=== PATIENT | female | born 1970 | race Caucasian/White ===

== ENCOUNTER 2017-01-13 15:25 | Emergency (ER) | payer SELFPAY ==
[2017-01-13 15:29] VITALS: BP 142/86; PULSE 100; TEMP 97.7; BMI 26.6
--- NOTE | 2017-01-13 15:30 | PDOC ---
Rapid Medical Evaluation Time Seen by Provider: 01/13/17 15:28 Medical Evaluation: Allergies Allergy/AdvReac Type Severity Reaction Status Date / Time No Known Allergies Allergy Verified 10/07/15 16:26 01/13/17 15:28 I have performed a brief in-person evaluation of this patient. The patient presents with a chief complaint of: sore throat and cough x 1 week Pertinent physical exam findings:Exam unremarkable I have ordered the following:nothing The patient will proceed to the ED for further evaluation.
--- NOTE | 2017-01-13 15:59 | PDOC ---
History of Present Illness - General Chief Complaint: Sore Throat Stated Complaint: COUGH, THROAT PAIN Time Seen by Provider: 01/13/17 15:28 History Source: Patient Exam Limitations: No Limitations - History of Present Illness Initial Comments: 01/13/17 16:19 Patient is a 46-year-old female with no past medical history who presents emergency department with 1 week of ear pain, cough and sore throat. She is not taking any medication to help with her pain, or cough. She states that her ear pain makes her throat hurt more. Denies fevers, chills, malaise, hearing changes , tinnitus, shortness of breath, chest pain, nausea, vomiting and diarrhea. Past History - Travel Traveled outside of the country in the last 30 days: No Close contact w/someone who was outside of country & ill: No - Past Medical History Allergies/Adverse Reactions: Allergies Allergy/AdvReac Type Severity Reaction Status Date / Time No Known Allergies Allergy Verified 01/13/17 15:29 Home Medications: Ambulatory Orders Albuterol Sulfate Inhaler - [Ventolin HFA Inhaler -] 1 - 2 inh PO Q4H #1 inhaler 01/13/17 Guaifenesin AC [Robitussin AC] 10 ml PO Q6H #200 ml MDD 4 01/13/17 Ofloxacin Otic [Floxin Otic -] 10 drop OT DAILY #70 drops 01/13/17 COPD: No Other medical history: NONE - Suicide/Smoking/Psychosocial Hx Smoking History: Never smoked Have you smoked in the past 12 months: No Hx Alcohol Use: No Drug/Substance Use Hx: No Substance Use Type: None Review of Systems - Review of Systems Able to Perform ROS?: Yes Comments:: 01/13/17 16:21 CONSTITUTIONAL: Absent: fever, chills, diaphoresis, generalized weakness, malaise, loss of appetite HEENT: Present: R ear pain. Absent: rhinorrhea, nasal congestion, throat pain, throat swelling, difficulty swallowing, mouth swelling, eye pain, visual Changes CARDIOVASCULAR: Absent: chest pain, loss of consciousness, palpitations, irregular heart rate, peripheral edema RESPIRATORY: Present: cough Absent: shortness of breath, dyspnea with exertion, orthopnea, wheezing, stridor, hemoptysis GASTROINTESTINAL: Absent: abdominal pain, abdominal distension, nausea, vomiting, diarrhea, constipation, melena, hematochezia GENITOURINARY: Absent: dysuria, frequency, urgency, hesitancy, hematuria, flank pain, genital pain MUSCULOSKELETAL: Absent: myalgia, arthralgia, joint swelling SKIN: Absent: rash, itching, pallor HEMATOLOGIC/IMMUNOLOGIC: Absent: easy bleeding, easy bruising, lymphadenopathy, frequent infections ENDOCRINE: Absent: unexplained weight gain, unexplained weight loss, heat intolerance, cold intolerance NEUROLOGIC: Absent: headache, focal weakness or paresthesias, dizziness, unsteady gait, seizure, mental status changes, bladder or bowel incontinence PSYCHIATRIC: Absent: anxiety, depression, suicidal or homicidal ideation, hallucinations. Is the patient limited [place] proficient: No *Physical Exam - Vital Signs Last Vital Signs Temp Pulse Resp BP Pulse Ox 97.7 F 100 H 20 142/86 97 01/13/17 15:27 01/13/17 15:27 01/13/17 15:27 01/13/17 15:27 01/13/17 15:27 - Physical Exam Comments: 01/13/17 16:22 GENERAL: Well developed, well nourished. Awake and alert. No acute distress. HEENT: Normocephalic, atraumatic. PERRLA, EOMI. No conjunctival pallor. Sclera are non- icteric. Moist mucous membranes. erythematous posterior oropharynx . R ear canal swollen. TM's pearly salguero, good landmarks and good cone of light b/l. NECK: Supple. Full ROM. No JVD. Carotid pulses 2+ and symmetric, without bruits. No thyromegaly. No lymphadenopathy. CARDIOVASCULAR: Regular rate and rhythm. No murmurs, rubs, or gallops. Distal pulses are 2+ and symmetric. PULMONARY: No evidence of respiratory distress. Lungs clear to auscultation bilaterally. No wheezing, rales or rhonchi. ABDOMINAL: Soft. Non-tender. Non-distended. No rebound or guarding. No organomegaly. Normoactive bowel sounds. MUSCULOSKELETAL Normal range of motion at all joints. No bony deformities or tenderness. No CVA tenderness. EXTREMITIES: No cyanosis. No clubbing. No edema. No calf tenderness. SKIN: Warm and dry. Normal capillary refill. No rashes. No jaundice. NEUROLOGICAL: Alert, awake, appropriate. Cranial nerves 2-12 intact. No deficits to light touch and temperature in face, upper extremities and lower extremities. No motor deficits in the in face, upper extremities and lower extremities. Normoreflexic in the upper and lower extremities. Normal speech. Toes are down- going bilaterally. Gait is normal without ataxia. PSYCHIATRIC: Cooperative. Good eye contact. Appropriate mood and affect. Medical Decision Making - Medical Decision Making 01/13/17 16:23 Patient is a 46-year-old female with no past medical history who presents with 1 week of cough, ear pain, sore throat. Patient does appear to have a right otitis externa on exam. Will rapid strep at this time. Ibuprofen, Robitussin and reevaluate. 01/13/17 17:06 Strep is negative at this time. Will d/c home with robitussin and albuterol for cough, and ofloxacin drops for the otitis externa. *DC/Admit/Observation/Transfer Diagnosis at time of Disposition: Upper respiratory infection Qualifiers: URI type: unspecified viral URI Qualified Code(s): J06.9 - Acute upper respiratory infection, unspecified Otitis externa Qualifiers: Otitis externa type: unspecified type Chronicity: acute Laterality: right Qualified Code(s): H60.501 - Unspecified acute noninfective otitis externa, right ear - Discharge Dispostion Disposition: HOME Condition at time of disposition: Good Admit: No - Prescriptions Prescriptions: Albuterol Sulfate Inhaler - [Ventolin HFA Inhaler -] 1 - 2 inh PO Q4H #1 inhaler Guaifenesin AC [Robitussin AC] 10 ml PO Q6H #200 ml MDD 4 Ofloxacin Otic [Floxin Otic -] 10 drop OT DAILY #70 drops - Referrals Referrals: Vanesa Tony [Primary Care Provider] - - Patient Instructions Printed Discharge Instructions: DI for Viral Upper Respiratory Infection -- Adult, DI for Otitis Externa Additional Instructions: You have an upper respiratory infection. Her strep test was negative today. Please take Robitussin every 6 hours as needed for cough. Do not drive after taking the robitussin as it may make you sleepy. You may take Tylenol or Motrin as needed for pain. Drink plenty of fluids. You also have an infection of the right ear canal. Your prescribed ofloxacin drops please take the medication as prescribed. Follow up with your primary care doctor in 1 week. Return to the emergency department if you have worsening fevers, chills, shortness of breath, heaviness, weakness or any changes in your symptoms. - Post Discharge Activity
[2017-01-13] MEDS ORDERED: IBUPROFEN 600 MG TABLET (FP) PO ONE ×2 (16:18→16:22)
[2017-01-13] MEDS ORDERED: guaiFENesin 200 MG/10 ML 10 ML UNIT-DOSE CUPS PO ONE (16:18)
[2017-01-13] MEDS ORDERED: guaiFENesin 200 MG/10 ML 10 ML UNIT-DOSE CUPS ONE (16:32)
== END 2017-01-13 17:22 | disposition home or self-care (01) ==
LOC: JERFT 15:25
DX: J06.9 Acute upper respiratory infection, unspecified (principal); H60.501 Unspecified acute noninfective otitis externa, right ear
CPT/HCPCS: 87070; 87430; 99281-25

== ENCOUNTER → 2018-10-10 | Day surgery (SDC) | payer OTHER ==
--- NOTE | 2018-10-12 17:34 | PATH ---
Cytology Non-Gynecological Report Patient Name: KIMBER FAJARDO [facility]. Rec. #: [id number] /Age/Gender: 1970 (Age: 48) / F Account: [id number] Location: MAMMOGRAPHY Taken: 10/10/2018 Received: 10/11/2018 Reported: 10/12/2018 Physicians: Emigdio Pierce M.D. Specimen(s) Received RIGHT BREAST 10:00 FNA Clinical History Right breast complicated cyst, 10:00 Final Diagnosis BREAST, RIGHT, 10:00, COMPLICATED CYST, FINE NEEDLE ASPIRATION: SATISFACTORY FOR EVALUATION. NO MALIGNANT CELLS IDENTIFIED. PROTEINACEOS DEBRIS AND RARE DEGENERATED CELLS CONSISTENT WITH CYST CONTENTS. Electronically Signed Enid Vu M.D. Gross Description Approximately 50 cc of chen fluid received fixed in 50% alcohol. One cytofunnel prepared and Pap stained. One cellblock prepared.
== END | disposition home or self-care (01) ==
LOC: JRADUS-SUR 08:53 → JMAMMO 08:53
PROVIDERS: ATTEND Internal Medicine
PROC: 0H9T3ZX Drainage of Right Breast, Percutaneous Approach, Diagnostic (ICD-10-PCS; principal; 2018-10-10)
DX: N60.01 Solitary cyst of right breast (principal)
CPT/HCPCS: 76942-TC; 87899; 88108; 88305-TC

== ENCOUNTER 2020-02-10 02:53 | Emergency (ER) | payer OTHER ==
[2020-02-10 03:17] VITALS: BMI 18.6
[2020-02-10] MEDS ORDERED: SODIUM CHLORIDE 0.9% 500 ML INFUS.BAG IV ONE (03:26)
[2020-02-10 04:23] LABS: BASO % 0.5 % (0-2.0); EOS % 0.5 % (0-4.5); HEMATOCRIT 35.1 % (32.4-45.2); HEMOGLOBIN 11.4 GM/dL (10.7-15.3); LYMPH % 24.8 % (8-40); MCH 25.2 pg (25.7-33.7); MCHC 32.4 g/dl (32.0-36.0); MEAN CELL VOLUME 77.7 fl (80-96); MEAN PLT VOLUME 9.9 fl (7.5-11.1); MONO % 7.7 % (3.8-10.2); NEUT % 66.5 % (42.8-82.8); PLATELET COUNT 187 K/MM3 (134-434); RBC 4.52 M/mm3 (3.60-5.2); RDW 15.2 % (11.6-15.6)
[2020-02-10 04:25] LABS: CHLORIDE 104 mmol/L (98-107); POTASSIUM 3.5 mmol/L (3.5-5.1); SODIUM 139 mmol/L (136-145)
[2020-02-10 04:27] LABS: CALCIUM 8.6 mg/dL (8.5-10.1)
[2020-02-10 04:28] LABS: ALBUMIN 3.8 g/dl (3.4-5.0); ANION GAP 8 MMOL/L (8-16); BLOOD UREA NITROGEN 9.8 mg/dL (7-18); CO2 27 mmol/L (21-32); GLUCOSE,RANDOM 104 mg/dL (74-106)
[2020-02-10 04:30] LABS: EPI CELLS 13 /uL (0-25.1); HYALINE CASTS 1 /uL (0-3.1); PH,URINE 6.5 (5.0-8.0); URINE APPEARANCE CLEAR; URINE BACTERIA 518 /uL (0-1359); URINE BILIRUBIN NEGATIVE (NEGATIVE); URINE COLOR YELLOW; URINE GLUCOSE (UA) NEGATIVE (NEGATIVE); URINE KETONE NEGATIVE (NEGATIVE); URINE LEUK ESTERASE NEGATIVE (NEGATIVE); URINE NITRITE NEGATIVE (NEGATIVE); URINE PROTEIN 1+ (NEGATIVE); URINE UROBILINOGEN 0.2 mg/dL (0.2-1.0); URINE WBC 11 /uL (0-25.8)
[2020-02-10 04:31] LABS: CREATININE 0.5 mg/dL (0.55-1.3); SGOT/AST 30 U/L (15-37); SGPT/ALT 60 U/L (13-61)
[2020-02-10 04:33] LABS: BILIRUBIN,TOTAL 0.3 mg/dL (0.2-1); INR 0.96 (0.83-1.09); PROTHROMBIN TIME (PATIENT) 11.8 SEC (9.7-13.0); TOT PROT 7.3 g/dl (6.4-8.2)
[2020-02-10 04:34] LABS: ALK PHOS 83 U/L (45-117)
[2020-02-10 04:36] LABS: ACTIVATED PTT 35.6 SECONDS (25.2-36.5)
[2020-02-10 05:23] LABS: URINE RBC 25.4 /uL (0-23.9)
[2020-02-10 07:14] VITALS: BP 141/92; PULSE 90; TEMP 98.3
== END 2020-02-10 07:54 | disposition home or self-care (01) ==
LOC: JER 02:53
DX: R42 Dizziness and giddiness (principal); R06.02 Shortness of breath
CPT/HCPCS: 36415; 71045-TC-FY; 80053; 81003; 82550; 84484; 84703; 85025; 85379; 85610; 85730; 86850; 86900; 86901; 87086; 93005; 93010; 99285-25

== ENCOUNTER 2020-02-12 12:24 | Emergency (ER) | payer OTHER ==
[2020-02-12 12:35] VITALS: BP 161/82; PULSE 88; TEMP 98.1; BMI 27.1
[2020-02-12] MEDS ORDERED: KETOROLAC TROMETHAMINE 60 MG/2 ML VIAL IM ONE (12:53)
[2020-02-12] MEDS ORDERED: KETOROLAC TROMETHAMINE 60 MG/2 ML VIAL ONE (12:59)
== END 2020-02-12 13:13 | disposition home or self-care (01) ==
LOC: JERFT 12:24
PROC: 3E0233Z Introduction of Anti-inflammatory into Muscle, Percutaneous Approach (ICD-10-PCS; principal; 2020-02-12)
DX: M54.2 Cervicalgia (principal)
CPT/HCPCS: 96372; 99284-25

== ENCOUNTER 2020-02-17 09:20 | Emergency (ER) | payer OTHER ==
[2020-02-17 09:32] VITALS: TEMP 97.9; BMI 25.8
[2020-02-17 10:39] VITALS: BP 158/95; PULSE 100
[2020-02-17 11:19] LABS: URINE APPEARANCE CLEAR; URINE BILIRUBIN NEGATIVE (NEGATIVE); URINE COLOR YELLOW; URINE GLUCOSE (UA) NEGATIVE (NEGATIVE); URINE KETONE NEGATIVE (NEGATIVE); URINE LEUK ESTERASE NEGATIVE (NEGATIVE); URINE NITRITE NEGATIVE (NEGATIVE); URINE PROTEIN NEGATIVE (NEGATIVE); URINE UROBILINOGEN 0.2 mg/dL (0.2-1.0)
== END 2020-02-17 13:12 | disposition home or self-care (01) ==
LOC: JER 09:20
DX: M47.892 Other spondylosis, cervical region (principal)
CPT/HCPCS: 72125-TC; 81003; 84703; 87086; 99284-25; C9803; U0003

== ENCOUNTER 2020-03-28 01:02 | Observation (INO) | payer OTHER ==
[2020-03-28 02:12] VITALS: BMI 29.8
[2020-03-28] MEDS ORDERED: ASPIRIN 81 MG CHEWABLE TABLETS PO ONE (02:17)
[2020-03-28] MEDS ORDERED: ASPIRIN 81 MG CHEWABLE TABLETS ONE (02:39)
[2020-03-28 03:08] LABS: BASO % 0.7 % (0-2.0); EOS % 0.2 % (0-4.5); HEMATOCRIT 33.6 % (32.4-45.2); LYMPH % 14.5 % (8-40); MCH 25.4 pg (25.7-33.7); MCHC 32.8 g/dl (32.0-36.0); MEAN CELL VOLUME 77.5 fl (80-96); MEAN PLT VOLUME 9.4 fl (7.5-11.1); MONO % 5.2 % (3.8-10.2); NEUT % 79.4 % (42.8-82.8); PLATELET COUNT 190 K/MM3 (134-434); RBC 4.34 M/mm3 (3.60-5.2); RDW 14.6 % (11.6-15.6); WHITE BLOOD COUNT 7.8 K/mm3 (4.0-10.0)
[2020-03-28 03:14] LABS: INR 1.04 (0.83-1.09); PROTHROMBIN TIME (PATIENT) 12.6 SEC (9.7-13.0)
[2020-03-28 03:25] LABS: CHLORIDE 106 mmol/L (98-107); POTASSIUM 4.1 mmol/L (3.5-5.1); SODIUM 140 mmol/L (136-145)
[2020-03-28 03:27] LABS: CALCIUM 8.5 mg/dL (8.5-10.1)
[2020-03-28 03:28] LABS: ALBUMIN 3.9 g/dl (3.4-5.0); ANION GAP 6 MMOL/L (8-16); BLOOD UREA NITROGEN 11.6 mg/dL (7-18); CO2 28 mmol/L (21-32); GLUCOSE,RANDOM 106 mg/dL (74-106); MAGNESIUM 1.9 mg/dL (1.8-2.4)
[2020-03-28 03:31] LABS: CREATININE 0.6 mg/dL (0.55-1.3); SGOT/AST 32 U/L (15-37); SGPT/ALT 50 U/L (13-61)
[2020-03-28 03:33] LABS: BILIRUBIN,TOTAL 0.4 mg/dL (0.2-1); TOT PROT 7.5 g/dl (6.4-8.2)
[2020-03-28 03:34] LABS: ALK PHOS 68 U/L (45-117)
[2020-03-28] MEDS ORDERED: ACETAMINOPHEN 325 MG TABLET (FP) PO PRN (07:38)
[2020-03-28] MEDS ORDERED: ENOXAPARIN NA (PORCINE) 40 MG/0.4 ML DISP.SYRIN SQ SCH (10:00)
[2020-03-28 11:42] LABS: CHOLESTEROL 204 mg/dL (50-200); TRIGLYCERIDES 119 mg/dL (0-150)
[2020-03-28 11:43] LABS: LDL CHOLESTEROL (ONLY SJRH) 129 mg/dL (5-100)
[2020-03-28 11:45] LABS: HDL CHOLESTEROL 47 mg/dL (40-60)
[2020-03-28] MEDS ORDERED: ENOXAPARIN NA (PORCINE) 40 MG/0.4 ML DISP.SYRIN SQ ONE (12:09)
[2020-03-28 12:46] VITALS: BP 119/63; PULSE 77; TEMP 98.2
[2020-03-28] MEDS ORDERED: LOSARTAN POTASSIUM 25 MG TABLET PO SCH (13:15)
[2020-03-28] MEDS ORDERED: LOSARTAN POTASSIUM 50 MG TABLET ONE (13:24)
[2020-03-28] MEDS ORDERED: ATORVASTATIN CA 40 MG TABLET (FP) PO SCH (22:00)
[2020-03-29] MEDS ORDERED: ASPIRIN 81 MG CHEWABLE TABLETS PO SCH (10:00)
== END 2020-03-28 14:00 | disposition home or self-care (01) ==
LOC: JER 01:02 → JERBED 06:39
PROVIDERS: ADMIT Hospitalist; ATTEND Hospitalist
PROC: 3E023GC Introduction of Other Therapeutic Substance into Muscle, Percutaneous Approach (ICD-10-PCS; principal; 2020-03-28)
DX: M54.2 Cervicalgia (principal); M19.90 Unspecified osteoarthritis, unspecified site; G89.29 Other chronic pain; E66.3 Overweight; Z68.29 Body mass index [BMI] 29.0-29.9, adult; Z29.9 Encounter for prophylactic measures, unspecified
CPT/HCPCS: 36415; 71275-TC; 74174-TC; 80053; 80061; 82550; 83036; 83721; 83735; 84443; 84484; 85025; 85379; 85610; 85730; 86140; 93005; 93010; 93306-TC; 93880-TC; 99285-25; C9803; G0378; U0003

== ENCOUNTER 2020-04-03 16:15 | Emergency (ER) | payer OTHER ==
[2020-04-03 16:23] VITALS: BP 139/70; PULSE 98; TEMP 98.1; BMI 32.3
== END 2020-04-03 17:15 | disposition home or self-care (01) ==
LOC: JER 16:15
DX: I10 Essential (primary) hypertension (principal)
CPT/HCPCS: 99282-25

== ENCOUNTER 2020-04-20 22:55 | Emergency (ER) | payer OTHER ==
[2020-04-20 23:03] VITALS: BMI 34.9
[2020-04-21] MEDS ORDERED: ACETAMINOPHEN 325 MG TABLET (FP) PO ONE (00:22)
[2020-04-21] MEDS ORDERED: ACETAMINOPHEN 325 MG TABLET (FP) ONE (00:29)
[2020-04-21 01:12] LABS: BASO % 0.6 % (0-2.0); EOS % 0.2 % (0-4.5); HEMATOCRIT 32.3 % (32.4-45.2); HEMOGLOBIN 10.7 GM/dL (10.7-15.3); MCH 25.7 pg (25.7-33.7); MCHC 33.2 g/dl (32.0-36.0); MEAN CELL VOLUME 77.3 fl (80-96); MEAN PLT VOLUME 9.8 fl (7.5-11.1); MONO % 5.7 % (3.8-10.2); NEUT % 77.5 % (42.8-82.8); PLATELET COUNT 201 K/MM3 (134-434); RBC 4.18 M/mm3 (3.60-5.2); WHITE BLOOD COUNT 8.9 K/mm3 (4.0-10.0)
[2020-04-21 01:22] LABS: EPI CELLS 5 /uL (0-25.1); HYALINE CASTS 1 /uL (0-3.1); PH,URINE 6.5 (5.0-8.0); URINE APPEARANCE CLEAR; URINE BACTERIA 35 /uL (0-1359); URINE BILIRUBIN NEGATIVE (NEGATIVE); URINE COLOR YELLOW; URINE GLUCOSE (UA) NEGATIVE (NEGATIVE); URINE KETONE NEGATIVE (NEGATIVE); URINE LEUK ESTERASE NEGATIVE (NEGATIVE); URINE NITRITE NEGATIVE (NEGATIVE); URINE PROTEIN NEGATIVE (NEGATIVE); URINE RBC 7 /uL (0-23.9); URINE UROBILINOGEN 0.2 mg/dL (0.2-1.0); URINE WBC 2 /uL (0-25.8)
[2020-04-21 01:45] LABS: CHLORIDE 107 mmol/L (98-107); POTASSIUM 4.3 mmol/L (3.5-5.1); SODIUM 141 mmol/L (136-145)
[2020-04-21 01:48] LABS: ANION GAP 8 MMOL/L (8-16); BLOOD UREA NITROGEN 13.1 mg/dL (7-18); CALCIUM 9.1 mg/dL (8.5-10.1); CO2 26 mmol/L (21-32); GLUCOSE,RANDOM 107 mg/dL (74-106)
[2020-04-21 01:51] LABS: CREATININE 0.6 mg/dL (0.55-1.3); SGOT/AST 32 U/L (15-37); SGPT/ALT 49 U/L (13-61)
[2020-04-21 01:52] LABS: BILIRUBIN,TOTAL 0.2 mg/dL (0.2-1); TOT PROT 7.4 g/dl (6.4-8.2)
[2020-04-21 01:55] LABS: ALK PHOS 89 U/L (45-117)
[2020-04-21 02:52] VITALS: BP 131/78; PULSE 97; TEMP 97.2
== END 2020-04-21 02:52 | disposition home or self-care (01) ==
LOC: JER 22:55
DX: J02.0 Streptococcal pharyngitis (principal); I10 Essential (primary) hypertension; G44.209 Tension-type headache, unspecified, not intractable
CPT/HCPCS: 36415; 70450-TC; 71046-TC-FY; 80053; 81003; 84484; 85025; 87086; 93005; 93010; 99285-25

== ENCOUNTER 2020-07-22 23:34 | Emergency (ER) | payer OTHER ==
[2020-07-22 23:50] VITALS: BP 156/74; PULSE 83; TEMP 97.6; BMI 34.0
[2020-07-23] MEDS ORDERED: ACETAMINOPHEN 325 MG TABLET (FP) PO ONE (00:32)
[2020-07-23] MEDS ORDERED: MAG HYDROX/AL HYDROX/SIMETH 30 ML UNIT-DOSE CUP PO ONE (00:34)
[2020-07-23] MEDS ORDERED: ACETAMINOPHEN 325 MG TABLET (FP) ONE (00:47)
[2020-07-23] MEDS ORDERED: MAG HYDROX/AL HYDROX/SIMETH 30 ML UNIT-DOSE CUP ONE (00:48)
[2020-07-23 01:10] LABS: BASO % 1.1 % (0-2.0); EOS % 0.4 % (0-4.5); HEMATOCRIT 32.8 % (32.4-45.2); HEMOGLOBIN 10.7 GM/dL (10.7-15.3); MCH 24.7 pg (25.7-33.7); MCHC 32.6 g/dl (32.0-36.0); MEAN CELL VOLUME 75.7 fl (80-96); MEAN PLT VOLUME 10.1 fl (7.5-11.1); MONO % 8.5 % (3.8-10.2); PLATELET COUNT 201 K/MM3 (134-434); RBC 4.34 M/mm3 (3.60-5.2); RDW 14.1 % (11.6-15.6); WHITE BLOOD COUNT 5.3 K/mm3 (4.0-10.0)
[2020-07-23 01:28] LABS: CHLORIDE 106 mmol/L (98-107); SODIUM 139 mmol/L (136-145)
[2020-07-23 01:30] LABS: ALBUMIN 4.3 g/dl (3.4-5.0); CALCIUM 8.9 mg/dL (8.5-10.1)
[2020-07-23 01:31] LABS: ANION GAP 4 MMOL/L (8-16); BLOOD UREA NITROGEN 10.1 mg/dL (7-18); CO2 29 mmol/L (21-32); GLUCOSE,RANDOM 107 mg/dL (74-106)
[2020-07-23 01:33] LABS: SGPT/ALT 59 U/L (13-61)
[2020-07-23 01:34] LABS: CREATININE 0.6 mg/dL (0.55-1.3); SGOT/AST 47 U/L (15-37)
[2020-07-23 01:35] LABS: BILIRUBIN,TOTAL 0.2 mg/dL (0.2-1); TOT PROT 7.8 g/dl (6.4-8.2)
[2020-07-23 01:36] LABS: ALK PHOS 106 U/L (45-117)
[2020-07-23] MEDS ORDERED: SIMETHICONE 80 MG TAB.CHEW (FP) PO ONE (01:48)
== END 2020-07-23 03:28 | disposition home or self-care (01) ==
LOC: JER 23:34
DX: R07.89 Other chest pain (principal); G44.209 Tension-type headache, unspecified, not intractable
CPT/HCPCS: 36415; 71046-TC-FY; 80053; 84484; 85025; 93005; 93010; 99284-25; C9803; U0003; U0005

== ENCOUNTER 2020-10-15 17:29 | Emergency (ER) | payer OTHER ==
[2020-10-15 17:41] VITALS: BP 149/86; PULSE 92; TEMP 98.2; BMI 30.2
[2020-10-15] MEDS ORDERED: diphenhydrAMINE HCL 25 MG CAPSULE (FP) PO ONE ×2 (19:29→19:52)
[2020-10-15] MEDS ORDERED: predniSONE 20 MG TABLET (UD) PO ONE (19:29)
[2020-10-15] MEDS ORDERED: FAMOTIDINE 20 MG TABLET PO ONE (19:29)
[2020-10-15] MEDS ORDERED: predniSONE 20 MG TABLET (UD) ONE (19:51)
[2020-10-15] MEDS ORDERED: FAMOTIDINE 20 MG TABLET ONE (19:52)
== END 2020-10-15 20:45 | disposition home or self-care (01) ==
LOC: JER 17:29
DX: T78.40XA Allergy, unspecified, initial encounter (principal)
CPT/HCPCS: 99283-25

== ENCOUNTER 2020-12-24 04:58 | Day surgery (SDC) | payer OTHER ==
[2020-12-18 16:21] VITALS: BMI 31.4
[2020-12-24 08:52] VITALS: TEMP 97.5
[2020-12-24 09:25] VITALS: BP 120/70
[2020-12-24 09:26] VITALS: PULSE 61
== END 2020-12-24 09:35 | disposition home or self-care (01) ==
LOC: JASU-ENDO 04:58
PROVIDERS: ATTEND Internal Medicine Gastroenterology
PROC: 0DBE8ZX Excision of Large Intestine, Via Natural or Artificial Opening Endoscopic, Diagnostic (ICD-10-PCS; 2020-12-24)
PROC: 0DBL8ZX Excision of Transverse Colon, Via Natural or Artificial Opening Endoscopic, Diagnostic (ICD-10-PCS; principal; 2020-12-24 08:15)
DX: Z12.11 Encounter for screening for malignant neoplasm of colon (principal); D12.3 Benign neoplasm of transverse colon; K63.89 Other specified diseases of intestine; K64.8 Other hemorrhoids
CPT/HCPCS: 81025; 88305-TC

== ENCOUNTER 2021-01-31 12:46 | Emergency (ER) | payer OTHER ==
[2021-01-31 13:41] VITALS: TEMP 98.3; BMI 28.4
[2021-01-31] MEDS ORDERED: MAG HYDROX/AL HYDROX/SIMETH 30 ML UNIT-DOSE CUP PO ONE (15:16)
[2021-01-31] MEDS ORDERED: SODIUM CHLORIDE 0.9% 500 ML INFUS.BAG IV ONE (15:16)
[2021-01-31] MEDS ORDERED: ACETAMINOPHEN 1000 MG/100 ML VIAL IVPB ONE (15:16)
[2021-01-31] MEDS ORDERED: MECLIZINE HCL 25 MG TABLET (FP) PO ONE (15:16)
[2021-01-31] MEDS ORDERED: FAMOTIDINE 20 MG/50 ML IVPB 20 MG/50 ML MG IVPB ONE (15:17)
[2021-01-31] MEDS ORDERED: ACETAMINOPHEN INJECTION 100 ML IVPB ONE (15:23)
[2021-01-31] MEDS ORDERED: MAG HYDROX/AL HYDROX/SIMETH 30 ML UNIT-DOSE CUP ONE (15:23)
[2021-01-31] MEDS ORDERED: FAMOTIDINE/PF 20 MG/2 ML VIAL ONE (15:47)
[2021-01-31 15:58] LABS: BASO % 0.7 % (0-2.0); EOS % 0.3 % (0-4.5); HEMATOCRIT 38.7 % (32.4-45.2); HEMOGLOBIN 13.4 GM/dL (10.7-15.3); LYMPH % 19.7 % (8-40); MCH 29.1 pg (25.7-33.7); MCHC 34.6 g/dl (32.0-36.0); MEAN CELL VOLUME 84.1 fl (80-96); MEAN PLT VOLUME 10.2 fl (7.5-11.1); MONO % 4.4 % (3.8-10.2); NEUT % 74.9 % (42.8-82.8); PLATELET COUNT 175 10^3/uL (134-434); RBC 4.61 M/mm3 (3.60-5.2); WHITE BLOOD COUNT 7.5 K/mm3 (4.0-10.0)
[2021-01-31 16:30] LABS: CHLORIDE 106 mmol/L (98-107); SODIUM 139 mmol/L (136-145)
[2021-01-31 16:32] LABS: BLOOD UREA NITROGEN 13.3 mg/dL (7-18); CALCIUM 9.3 mg/dL (8.5-10.1)
[2021-01-31 16:33] LABS: ALBUMIN 4.4 g/dl (3.4-5.0); ANION GAP 5 MMOL/L (8-16); CO2 28 mmol/L (21-32); GLUCOSE,RANDOM 89 mg/dL (74-106)
[2021-01-31 16:36] LABS: CREATININE 0.5 mg/dL (0.55-1.3); SGOT/AST 29 U/L (15-37); SGPT/ALT 51 U/L (13-61)
[2021-01-31 16:37] LABS: BILIRUBIN,TOTAL 0.7 mg/dL (0.2-1); TOT PROT 8.2 g/dl (6.4-8.2)
[2021-01-31 16:39] LABS: ALK PHOS 68 U/L (45-117)
[2021-01-31] MEDS ORDERED: KETOROLAC TROMETHAMINE 15 MG/ML VIAL IVPUSH ONE (17:09)
[2021-01-31 18:13] VITALS: BP 133/84; PULSE 79
== END 2021-01-31 18:14 | disposition home or self-care (01) ==
LOC: JER 12:46
PROC: 3E033GC Introduction of Other Therapeutic Substance into Peripheral Vein, Percutaneous Approach (ICD-10-PCS; principal; 2021-01-31)
DX: K21.9 Gastro-esophageal reflux disease without esophagitis (principal)
CPT/HCPCS: 36415; 71046-TC-FY; 80053; 84484; 85025; 85379; 93005; 93010; 96365; 96375; 99285-25; J0131

== ENCOUNTER 2021-02-04 05:31 | Day surgery (SDC) | payer OTHER ==
[2021-02-03 09:52] VITALS: BMI 27.7
[2021-02-04 09:57] VITALS: TEMP 97.5
[2021-02-04 11:13] VITALS: BP 127/72; PULSE 76
== END 2021-02-04 10:50 | disposition home or self-care (01) ==
LOC: JASU-ENDO 05:31
PROVIDERS: ATTEND Internal Medicine Gastroenterology
PROC: 0DB68ZX Excision of Stomach, Via Natural or Artificial Opening Endoscopic, Diagnostic (ICD-10-PCS; 2021-02-04)
PROC: 0DB38ZX Excision of Lower Esophagus, Via Natural or Artificial Opening Endoscopic, Diagnostic (ICD-10-PCS; principal; 2021-02-04 09:15)
DX: R10.13 Epigastric pain (principal); K29.50 Unspecified chronic gastritis without bleeding; B96.81 Helicobacter pylori [H. pylori] as the cause of diseases classified elsewhere; K21.9 Gastro-esophageal reflux disease without esophagitis; I10 Essential (primary) hypertension
CPT/HCPCS: 81025; 88305-TC; 88342-TC

== ENCOUNTER 2021-04-17 04:31 | Day surgery (SDC) | payer OTHER ==
[2021-04-17] MEDS ORDERED: MIDAZOLAM HCL 2 MG/2 ML SINGLE DOSE VIAL ONE (07:40)
[2021-04-17] MEDS ORDERED: ROCURONIUM BROMIDE 100 MG/10 ML VIAL ONE (07:40)
[2021-04-17] MEDS ORDERED: PROPOFOL 20 ML ONE (07:40)
[2021-04-17 08:53] VITALS: BMI 26.6
[2021-04-17] MEDS ORDERED: BUPIVACAINE HCL/PF 0.5% (5MG/ML) 10 ML VIAL IJ ONE ×2 (09:09→10:35)
[2021-04-17] MEDS ORDERED: ceFAZolin 2 GRAM PREMIX BAG IVPB ONE (09:15)
[2021-04-17] MEDS ORDERED: NEOSTIGMINE METHYLSULFATE 0.5 MG/ML - 10 ML MDV ONE (10:44)
[2021-04-17] MEDS ORDERED: oxyCODONE HCL 5 MG TABLET PO PRN ×2 (11:39)
[2021-04-17] MEDS ORDERED: ONDANSETRON 4 MG/2 ML VIAL IVPUSH PRN (11:39)
[2021-04-17] MEDS ORDERED: LACTATED RINGERS SOLUTION 1,000 ML IV SCH (11:45)
[2021-04-17] MEDS ORDERED: ACETAMINOPHEN 325 MG TABLET (FP) ONE (14:39)
[2021-04-17 15:06] VITALS: BP 130/61; PULSE 82; TEMP 97.7
[2021-04-17] MEDS ORDERED: ACETAMINOPHEN 325 MG TABLET (FP) PO ONE (15:45)
== END 2021-04-17 15:00 | disposition home or self-care (01) ==
LOC: JASU-SURG 04:31
PROVIDERS: ATTEND Surgery
PROC: 0FT44ZZ Resection of Gallbladder, Percutaneous Endoscopic Approach (ICD-10-PCS; principal; 2021-04-17 09:30)
DX: K80.00 Calculus of gallbladder with acute cholecystitis without obstruction (principal)
CPT/HCPCS: 88304-TC; 94760

== ENCOUNTER → 2023-04-20 | Day surgery (SDC) | payer OTHER ==
[2023-04-20 08:31] VITALS: BMI 28.2
[2023-04-20 09:02] VITALS: BP 147/83; PULSE 92; RESP 18; TEMP 97.8
== END | disposition home or self-care (01) ==
LOC: JASU-ENDO 04:22
PROVIDERS: ATTEND Internal Medicine Gastroenterology
DX: Z53.8 Procedure and treatment not carried out for other reasons (principal)
CPT/HCPCS: 81025

== ENCOUNTER 2023-05-04 04:34 | Day surgery (SDC) | payer OTHER ==
[2023-04-29 10:51] VITALS: BMI 28.2
[2023-05-04 09:20] VITALS: TEMP 97.3
[2023-05-04 09:49] VITALS: PULSE 67
[2023-05-04 09:51] VITALS: BP 137/75; RESP 14
== END 2023-05-04 09:54 | disposition home or self-care (01) ==
LOC: JASU-ENDO 04:34
PROVIDERS: ATTEND Internal Medicine Gastroenterology
PROC: 0DBL8ZX Excision of Transverse Colon, Via Natural or Artificial Opening Endoscopic, Diagnostic (ICD-10-PCS; 2023-05-04)
PROC: 0DBN8ZX Excision of Sigmoid Colon, Via Natural or Artificial Opening Endoscopic, Diagnostic (ICD-10-PCS; 2023-05-04)
PROC: 0DBF8ZX Excision of Right Large Intestine, Via Natural or Artificial Opening Endoscopic, Diagnostic (ICD-10-PCS; 2023-05-04)
PROC: 0DBM8ZX Excision of Descending Colon, Via Natural or Artificial Opening Endoscopic, Diagnostic (ICD-10-PCS; principal; 2023-05-04 08:45)
DX: Z12.11 Encounter for screening for malignant neoplasm of colon (principal); K63.89 Other specified diseases of intestine; K64.8 Other hemorrhoids; Z86.010 Personal history of colon polyps
CPT/HCPCS: 81025; 88305-TC

== ENCOUNTER 2023-07-06 15:10 | Emergency (ER) | payer OTHER ==
[2023-07-06 15:45] VITALS: BP 172/91; PULSE 89; RESP 17; TEMP 98.5; BMI 30.2
[2023-07-06] MEDS ORDERED: KETOROLAC TROMETHAMINE 30 MG/1 ML VIAL ONE (16:07)
[2023-07-06] MEDS: KETOROLAC TROMETHAMINE 30 MG/1 ML VIAL IM ONE (16:15)
== END 2023-07-06 16:28 | disposition home or self-care (01) ==
LOC: JERFT 15:10
PROC: 3E0233Z Introduction of Anti-inflammatory into Muscle, Percutaneous Approach (ICD-10-PCS; principal; 2023-07-06)
DX: R52 Pain, unspecified (principal); R51.9 Headache, unspecified; J02.9 Acute pharyngitis, unspecified; J06.9 Acute upper respiratory infection, unspecified; Z20.822 Contact with and (suspected) exposure to COVID-19
CPT/HCPCS: 0241U-QW; 87651; 99284-25

== ENCOUNTER 2023-11-23 18:30 | Emergency (ER) | payer OTHER ==
[2023-11-23 18:55] VITALS: BP 173/88; PULSE 78; RESP 19; TEMP 98.4; BMI 29.8
[2023-11-23] MEDS ORDERED: MECLIZINE HCL 25 MG TABLET (FP) ONE (20:28)
[2023-11-23] MEDS ORDERED: METOCLOPRAMIDE HCL INJECTION 10 MG/2 ML VIAL ONE (20:28)
[2023-11-23] MEDS ORDERED: LIDOCAINE 4% PATCH TP ONE (20:29)
[2023-11-23] MEDS ORDERED: ACETAMINOPHEN INJECTION 100 ML ONE (20:29)
[2023-11-23] MEDS: SODIUM CHLORIDE 0.9% 500 ML INFUS.BAG IV ONE (20:38)
[2023-11-23] MEDS: MECLIZINE HCL 25 MG TABLET (FP) PO ONE (20:38)
[2023-11-23] MEDS: LIDOCAINE 5% TOPICAL PATCH TP ONE (20:39)
[2023-11-23] MEDS: ACETAMINOPHEN 1000 MG/100 ML BAG IVPB ONE (20:39)
[2023-11-23] MEDS: METHOCARBAMOL 500 MG TABLET PO ONE (20:39)
[2023-11-23] MEDS: METOCLOPRAMIDE HCL INJECTION 10 MG/2 ML VIAL IVPUSH ONE (20:39)
[2023-11-23] MEDS ORDERED: LIDOCAINE PATCH REMOVAL MC SCH (22:00)
== END 2023-11-23 21:17 | disposition left against medical advice (07) ==
LOC: JER 18:30
DX: Z53.21 Procedure and treatment not carried out due to patient leaving prior to being seen by health care provider (principal)
CPT/HCPCS: 99281-25

== ENCOUNTER 2024-03-17 13:57 | Emergency (ER) | payer OTHER ==
[2024-03-17 14:07] VITALS: BP 154/80; PULSE 93; RESP 20; TEMP 97.5; BMI 26.6
[2024-03-17] MEDS: SODIUM CHLORIDE FOR INHALATION 3 ML VIAL.NEB IH ONE (15:01)
[2024-03-17] MEDS: ACETAMINOPHEN 500 MG TABLET (FP) PO ONE (15:01)
[2024-03-17] MEDS ORDERED: ACETAMINOPHEN 500 MG TABLET (FP) ONE (15:02)
== END 2024-03-17 16:51 | disposition home or self-care (01) ==
LOC: JERFT 13:57
DX: R05.9 Cough, unspecified (principal); M79.10 Myalgia, unspecified site; R50.9 Fever, unspecified; R09.3 Abnormal sputum
CPT/HCPCS: 0241U-QW; 71046-TC-FY; 99284-25

== ENCOUNTER 2024-04-24 09:33 | Emergency (ER) | payer OTHER ==
[2024-04-24 09:57] VITALS: BMI 25.5
[2024-04-24 10:44] LABS: EOS % 0.9 % (0-4.5); HEMATOCRIT 38.2 % (32.4-45.2); HEMOGLOBIN 12.9 GM/dL (10.7-15.3); LYMPH % 30.6 % (8-40); MCH 27.8 pg (25.7-33.7); MCHC 33.7 g/dl (32.0-36.0); MEAN CELL VOLUME 82.6 fl (80-96); MEAN PLT VOLUME 9.2 fl (7.5-11.1); MONO % 6.8 % (3.8-10.2); NEUT % 60.7 % (42.8-82.8); PLATELET COUNT 180 10^3/uL (134-434); RBC 4.63 M/mm3 (3.60-5.2); RDW 12.8 % (11.6-15.6); WHITE BLOOD COUNT 3.6 K/mm3 (4.0-10.0)
[2024-04-24] MEDS ORDERED: ACETAMINOPHEN INJECTION 100 ML ONE (10:45)
[2024-04-24 10:49] LABS: PH,URINE 6.5 (5.0-8.0); URINE APPEARANCE CLEAR; URINE BILIRUBIN NEGATIVE (NEGATIVE); URINE COLOR YELLOW; URINE GLUCOSE (UA) NEGATIVE (NEGATIVE); URINE KETONE NEGATIVE (NEGATIVE); URINE LEUK ESTERASE NEGATIVE (NEGATIVE); URINE NITRITE NEGATIVE (NEGATIVE); URINE PROTEIN NEGATIVE (NEGATIVE); URINE UROBILINOGEN 0.2 mg/dL (0.2-1.0)
[2024-04-24 10:52] LABS: INR 1.12 (0.83-1.09); PROTHROMBIN TIME (PATIENT) 12.3 SEC (9.7-13.0)
[2024-04-24 10:54] LABS: ACTIVATED PTT 38.3 SECONDS (25.2-36.5)
[2024-04-24] MEDS: ACETAMINOPHEN 1000 MG/100 ML BAG IVPB ONE (10:54)
[2024-04-24 11:39] LABS: ALBUMIN 4.1 g/dl (3.4-5.0); BLOOD UREA NITROGEN 13.8 mg/dL (7-18); CALCIUM 9.3 mg/dL (8.5-10.1); MAGNESIUM 1.9 mg/dL (1.8-2.4)
[2024-04-24 11:42] LABS: CREATININE 0.6 mg/dL (0.55-1.3)
[2024-04-24 11:44] LABS: BILIRUBIN,TOTAL 0.7 mg/dL (0.2-1); TOT PROT 7.9 g/dl (6.4-8.2)
[2024-04-24 12:39] VITALS: BP 135/79; PULSE 84; RESP 18; TEMP 98.7
== END 2024-04-24 14:14 | disposition home or self-care (01) ==
LOC: JER 09:33
PROC: 3E033NZ Introduction of Analgesics, Hypnotics, Sedatives into Peripheral Vein, Percutaneous Approach (ICD-10-PCS; principal; 2024-04-24)
DX: R10.31 Right lower quadrant pain (principal); R50.9 Fever, unspecified; Z20.822 Contact with and (suspected) exposure to COVID-19
CPT/HCPCS: 0241U-QW; 36415; 74177-TC; 80053; 81003; 83605; 83690; 83735; 84703; 85025; 85610; 85730; 86850; 86900; 86901; 87086; 96374; 99285-25; J0131

== ENCOUNTER 2024-09-04 14:54 | Emergency (ER) | payer OTHER ==
[2024-09-04 15:15] VITALS: TEMP 98; BMI 33.5
[2024-09-04] MEDS: FAMOTIDINE 20 MG/50 ML IVPB 20 MG/50 ML MG IVPB ONE (17:00)
[2024-09-04] MEDS: ACETAMINOPHEN 1000 MG/100 ML BAG IVPB ONE (17:00)
[2024-09-04] MEDS: ONDANSETRON 4 MG/2 ML VIAL IVPB ONE (17:00)
[2024-09-04 17:12] LABS: ABSOLUTE IMMATURE GRANULOCYTES 0.02 x10^3/uL (0.0-0.031); BASOPHILS # 0.04 x10^3/uL (0.01-0.08); EOSINOPHIL % 0.2 % (0.7-5.8); EOSINOPHILS # 0.01 x10^3/uL (0.04-0.36); MCHC 33.3 g/dl (32.2-35.5); MEAN CELL VOLUME 84.9 fl (79.4-94.8); MEAN PLT VOLUME 12.1 fl (9.4-12.3); MONOCYTE # 0.27 x10^3/uL (0.24-0.86); MONOCYTE % 6.0 % (4.7-12.5); RDW 13.1 % (12.3-16.6)
[2024-09-04 17:16] LABS: EPI CELLS 8 /uL (0-25.1); HYALINE CASTS 0 /uL (0-3.1); URINE APPEARANCE CLEAR; URINE BACTERIA 148 /uL (0-1359); URINE BILIRUBIN NEGATIVE (NEGATIVE); URINE COLOR YELLOW; URINE GLUCOSE (UA) NEGATIVE (NEGATIVE); URINE KETONE NEGATIVE (NEGATIVE); URINE LEUK ESTERASE TRACE (NEGATIVE); URINE NITRITE NEGATIVE (NEGATIVE); URINE PROTEIN NEGATIVE (NEGATIVE); URINE UROBILINOGEN 0.2 mg/dL (0.2-1.0); URINE WBC 3 /uL (0-25.8)
[2024-09-04] MEDS ORDERED: ACETAMINOPHEN INJECTION 100 ML ONE (17:22)
[2024-09-04] MEDS ORDERED: ONDANSETRON 4 MG/2 ML VIAL ONE (17:22)
[2024-09-04] MEDS ORDERED: FAMOTIDINE 20 MG/50 ML IVPB 20 MG/50 ML MG IVPB ONE (17:22)
[2024-09-04 17:50] LABS: CO2 28.0 mmol/L (21-32); GLUCOSE,RANDOM 123.0 mg/dL (74-106)
[2024-09-04 17:53] LABS: CREATININE 0.5 mg/dL (0.55-1.3); SGPT/ALT 38.0 U/L (13-61)
[2024-09-04 17:55] LABS: TOT PROT 7.3 g/dl (6.4-8.2)
[2024-09-04 17:56] LABS: ALK PHOS 75.0 U/L (45-117)
[2024-09-04 18:02] LABS: SGOT/AST 23.0 U/L (15-37)
[2024-09-04 18:38] LABS: HCV DIAGNOSTIC IN-HOUSE W/RFLX NON-REACTIVE (NONREACTIVE)
[2024-09-04 18:39] LABS: HIV INTERPRETATION NEGATIVE (NEGATIVE)
[2024-09-04] MEDS ORDERED: CEFTRIAXONE 1 GM/50 ML BAG ONE (19:36)
[2024-09-04] MEDS: CEFTRIAXONE 1 GM in DEXTROSE 5%-WATER - 100 ML IVPB ONE (19:36)
[2024-09-04 20:20] VITALS: BP 127/79; PULSE 82; RESP 17
== END 2024-09-04 20:05 | disposition home or self-care (01) ==
LOC: JER 14:54
PROC: 3E033GC Introduction of Other Therapeutic Substance into Peripheral Vein, Percutaneous Approach (ICD-10-PCS; principal; 2024-09-04)
PROC: 3E03329 Introduction of Other Anti-infective into Peripheral Vein, Percutaneous Approach (ICD-10-PCS; 2024-09-04)
PROC: 3E033NZ Introduction of Analgesics, Hypnotics, Sedatives into Peripheral Vein, Percutaneous Approach (ICD-10-PCS; 2024-09-04)
PROC: 3E033GC Introduction of Other Therapeutic Substance into Peripheral Vein, Percutaneous Approach (ICD-10-PCS; 2024-09-04)
DX: N30.90 Cystitis, unspecified without hematuria (principal); R10.31 Right lower quadrant pain; R10.32 Left lower quadrant pain; R50.9 Fever, unspecified; R14.0 Abdominal distension (gaseous)
CPT/HCPCS: 36415; 74177-TC; 80053; 81003; 83605; 83690; 84703; 85025; 86803; 87086; 87389; 99285-25; Q9967